=== PATIENT | female | born 1990 | race Caucasian/White ===

== ENCOUNTER 2017-01-14 12:49 | Emergency (ER) | payer SELFPAY ==
[2017-01-14 12:55] VITALS: TEMP 100.3; BMI 23.2
[2017-01-14 13:22] LABS: URINE APPEARANCE CLOUDY; URINE BILIRUBIN NEGATIVE (NEGATIVE); URINE BLOOD 2+ (NEGATIVE); URINE COLOR YELLOW; URINE GLUCOSE (UA) NEGATIVE (NEGATIVE); URINE KETONE TRACE (NEGATIVE); URINE NITRITE POSITIVE (NEGATIVE); URINE PROTEIN NEGATIVE (NEGATIVE); URINE UROBILINOGEN NEGATIVE mg/dL (0.2-1.0)
[2017-01-14 13:28] LABS: URINE LEUK ESTERASE 3+ (NEGATIVE)
[2017-01-14 13:38] LABS: URINE BACTERIA RARE /hpf (NONE SEEN); URINE MUCUS MANY; URINE RBC 11 /hpf (0-3); URINE WBC 67 /hpf (3-5)
--- NOTE | 2017-01-14 14:28 | PDOC ---
History of Present Illness - General History Source: Patient Exam Limitations: No Limitations - History of Present Illness Initial Comments: 01/14/17 14:55 The patient is a 26 year old female, with no significant past medical history, who presents today complaining of 1 week of lower abdominal pain, urinary hesitancy, dysuria, headache, and 1 day of fever. She describes the abdominal pain as achy and crampy. The headache is throbbing. She states that she has not been drinking a lot of water because she has been very busy at work. She also reports some nausea. Denies chills, vomiting, diarrhea, constipation. Denies chest pain, SOB. Denies history of UTIs. Allergies: none reported PCP- Dr. Gomez <Elaine Nunez - Last Filed: 01/14/17 14:55> <Nano Hoffmann - Last Filed: 01/14/17 17:55> - General Chief Complaint: Pain, Acute Stated Complaint: FEVER, LT SIDE ABD PAIN Time Seen by Provider: 01/14/17 14:16 Past History <Elaine Nunez - Last Filed: 01/14/17 14:55> - Past Medical History Asthma: Yes Psychiatric Problems: Yes (panic attacks) - Reproductive History Is Patient Now?: No - Immunization History Immunization Up to Date: Yes - Psycho/Social/Smoking Cessation Hx Suicidal Ideation: No Smoking History: Current some day smoker Number of Cigarettes Smoked Daily: 2 Information on smoking cessation initiated: No Hx Alcohol Use: Yes Drug/Substance Use Hx: No <Nano Hoffmann - Last Filed: 01/14/17 17:55> - Past Medical History Allergies/Adverse Reactions: Allergies Allergy/AdvReac Type Severity Reaction Status Date / Time No Known Allergies Allergy Verified 01/14/17 12:51 Home Medications: Ambulatory Orders Cephalexin Monohydrate [Keflex -] 500 mg PO Q8H #30 capsule 01/14/17 Ibuprofen [Motrin -] 600 mg PO TID PRN #21 tablet 01/14/17 Review of Systems - Review of Systems Able to Perform ROS?: Yes Comments:: 01/14/17 14:55 GENERAL/CONSTITUTIONAL: +fever, +headache.No chills. No weakness. HEAD, EYES, EARS, NOSE AND THROAT: No change in vision. No ear pain or discharge. No sore throat. CARDIOVASCULAR: No chest pain or shortness of breath. RESPIRATORY: No cough, wheezing, or hemoptysis. GASTROINTESTINAL: No nausea, vomiting, diarrhea or constipation. GENITOURINARY: +urinary hesitancy, +dysuria. No frequency MUSCULOSKELETAL: No joint or muscle swelling or pain. No neck or back pain. SKIN: No rash NEUROLOGIC: No vertigo, loss of consciousness, or change in strength/sensation. ENDOCRINE: No increased thirst. No abnormal weight change. HEMATOLOGIC/LYMPHATIC: No anemia, easy bleeding, or history of blood clots. ALLERGIC/IMMUNOLOGIC: No hives or skin allergy. <Elaine Nunez - Last Filed: 01/14/17 14:55> *Physical Exam - Vital Signs Last Vital Signs Temp Pulse Resp BP Pulse Ox 100.3 F H 85 20 105/61 100 01/14/17 12:51 01/14/17 12:51 01/14/17 12:51 01/14/17 12:51 01/14/17 12:51 <Elaine Nunez - Last Filed: 01/14/17 14:55> - Vital Signs Last Vital Signs Temp Pulse Resp BP Pulse Ox 100.3 F H 85 20 105/61 100 01/14/17 12:51 01/14/17 12:51 01/14/17 12:51 01/14/17 12:51 01/14/17 12:51 - Physical Exam Comments: GENERAL: Awake, alert, and fully oriented, in no acute distress HEAD: No signs of trauma EYES: PERRLA, EOMI, sclera anicteric, conjunctiva clear ENT: Auricles normal inspection, hearing grossly normal, nares patent, oropharynx clear without exudates. Dry mucosa NECK: Normal ROM, supple, no lymphadenopathy, JVD, or masses LUNGS: Breath sounds equal, clear to auscultation bilaterally. No wheezes, and no crackles HEART: Regular rate and rhythm, normal S1 and S2, no murmurs, rubs or gallops ABDOMEN: Soft, +suprapubic tenderness, normoactive bowel sounds. No guarding, no rebound. No masses. No CVAT. EXTREMITIES: Normal range of motion, no edema. No clubbing or cyanosis. No cords, erythema, or tenderness NEUROLOGICAL: Cranial nerves II through XII grossly intact. Normal speech, normal gait SKIN: Warm, Dry, normal turgor, no rashes or lesions noted. <Nano Hoffmann - Last Filed: 01/14/17 17:55> ED Treatment Course - ADDITIONAL ORDERS Additional order review: Laboratory Results 01/14/17 01/14/17 13:16 13:16 Urine Color Yellow Urine Appearance Cloudy Urine pH 5.0 Urine Protein Negative Urine Glucose (UA) Negative Urine Ketones Trace H Urine Blood 2+ H Urine Nitrite Positive Urine Bilirubin Negative Urine Urobilinogen Negative Ur Leukocyte Esterase 3+ H Urine RBC 11 Urine WBC 67 Ur Epithelial Cells Many Urine Bacteria Rare Urine Mucus Many Urine HCG, Qual Negative <Elaine Nunez - Last Filed: 01/14/17 14:55> - LABORATORY CBC & Chemistry Diagram: 01/14/17 15:04 01/14/17 15:04 - ADDITIONAL ORDERS Additional order review: Laboratory Results 01/14/17 01/14/17 13:16 13:16 Urine Color Yellow Urine Appearance Cloudy Urine pH 5.0 Urine Protein Negative Urine Glucose (UA) Negative Urine Ketones Trace H Urine Blood 2+ H Urine Nitrite Positive Urine Bilirubin Negative Urine Urobilinogen Negative Ur Leukocyte Esterase 3+ H Urine RBC 11 Urine WBC 67 Ur Epithelial Cells Many Urine Bacteria Rare Urine Mucus Many Urine HCG, Qual Negative <Nano Hoffmann - Last Filed: 01/14/17 17:55> Medical Decision Making - Medical Decision Making Pt improved significantly with toradol, IVF, and rocephin. Stable for DC home with outpatient f/u. Based on the fever, will treat for 10 days. <Nano Hoffmann - Last Filed: 01/14/17 17:55> *DC/Admit/Observation/Transfer - Attestations Scribe Attestion: 01/14/17 14:55 Documentation prepared by ZANE Samayoa, acting as medical office specialist for Nano Hoffmann MD <Elaine Nunez - Last Filed: 01/14/17 14:55> - Discharge Dispostion Admit: No <Nano Hoffmann - Last Filed: 01/14/17 17:55> Diagnosis at time of Disposition: UTI (urinary tract infection) Qualifiers: Urinary tract infection type: site unspecified Hematuria presence: without hematuria Qualified Code(s): N39.0 - Urinary tract infection, site not specified - Discharge Dispostion Disposition: HOME Condition at time of disposition: Improved - Prescriptions Prescriptions: Cephalexin Monohydrate [Keflex -] 500 mg PO Q8H #30 capsule Ibuprofen [Motrin -] 600 mg PO TID PRN #21 tablet PRN Reason: Pain - Referrals Referrals: Daniela Gomez MD [Primary Care Provider] - - Patient Instructions Printed Discharge Instructions: DI for Kidney Infection - Post Discharge Activity Work/School Note: Back to Work
[2017-01-14] MEDS ORDERED: CEFTRIAXONE 1 GM in DEXTROSE 5%-WATER - 50 ML IVPB ONE (14:50)
[2017-01-14] MEDS ORDERED: SODIUM CHLORIDE 1,000 ML IV STA (14:50)
[2017-01-14] MEDS ORDERED: KETOROLAC TROMETHAMINE 30 MG/1 ML VIAL IVPUSH ONE (14:50)
[2017-01-14] MEDS ORDERED: KETOROLAC TROMETHAMINE 30 MG/1 ML VIAL ONE (14:58)
[2017-01-14] MEDS ORDERED: CEFTRIAXONE 50 ML ONE (14:59)
[2017-01-14 15:19] LABS: BASOPHIL 0.2 % (0-2.0); EOSINOPHIL 0.5 % (0-4.5); MCH 26.7 pg (25.7-33.7); MCHC 32.3 g/dl (32.0-36.0); MEAN CELL VOLUME 82.7 fl (80-96); MEAN PLT VOLUME 9.8 fl (7.5-11.1); NEUTROPHILS 77.7 % (42.8-82.8); PLATELET COUNT 164 K/MM3 (134-434); RDW 16.4 % (11.6-15.6); WHITE BLOOD COUNT 4.5 K/mm3 (4.0-10.0)
[2017-01-14 15:45] LABS: ALBUMIN 3.7 g/dl (3.4-5.0); ANION GAP 6 (8-16); BILIRUBIN,TOTAL 0.4 mg/dL (0.2-1.0); CALCIUM 8.9 mg/dL (8.5-10.1); CO2 25 mmol/L (21-32); CREATININE 0.5 mg/dL (0.55-1.02); GLUCOSE,RANDOM 76 mg/dL (74-106); SGOT/AST 15 U/L (15-37); SGPT/ALT 19 U/L (12-78)
[2017-01-14 15:46] LABS: ALK PHOS 47 U/L (45-117)
[2017-01-14] MEDS ORDERED: OXYCODONE/APAP 5/325MG COMBO TABLET PO ONE (16:36)
[2017-01-14] MEDS ORDERED: OXYCODONE/APAP 5/325MG COMBO TABLET ONE (16:52)
[2017-01-14 16:57] VITALS: BP 106/74; PULSE 84
--- NOTE | 2017-01-17 08:13 | PDOC ---
Patient Follow-up (Call Back) - Post ED Follow - Up Condition at time of discharge: Improved Disposition at time of original discharge: HOME Reason for Call Back: Abnwl. Microbiology (+ urine culture, on keflex, susceptible.)
== END 2017-01-14 16:57 | disposition home or self-care (01) ==
LOC: JER 12:49
PROC: 3E03329 Introduction of Other Anti-infective into Peripheral Vein, Percutaneous Approach (ICD-10-PCS; principal; 2017-01-14)
PROC: 3E0333Z Introduction of Anti-inflammatory into Peripheral Vein, Percutaneous Approach (ICD-10-PCS; 2017-01-14)
PROC: 3E0337Z Introduction of Electrolytic and Water Balance Substance into Peripheral Vein, Percutaneous Approach (ICD-10-PCS; 2017-01-14)
DX: N39.0 Urinary tract infection, site not specified (principal); F17.210 Nicotine dependence, cigarettes, uncomplicated
CPT/HCPCS: 36415; 80053; 81003; 81015; 84703; 85025; 87086; 87186; 99284-25